=== PATIENT | male | born 1950 | race Caucasian/White ===

== ENCOUNTER 2017-10-15 01:15 | Inpatient (IN) | payer OTHER ==
[~2017-10-15] VITALS: Ht 170.2 cm; Wt 105.2 kg
--- NOTE | ~2017-10-15 | D ---
[facility] [place] [address] DISCHARGE SUMMARY Name: CATERINA METCALF Room #: 406-P [facility] IN M.R.#: [id number] Admission: 10/15/17 Attend Phys: Marlyn Burgos MD Discharge: 10/16/17 Date of : 54 Report #: [id number] THIS REPORT FOR: //name// CC: [facility]n [facility] DATE OF SERVICE: 10/16/2017 ADDENDUM I discussed the patient's case with the neurologist. EEG showed no seizure activity. MRI of the brain showed hyperintense signal within the anterior right temporal lobe, which was nonspecific. Status epilepticus was primary consideration. As noted, the patient had seizure episode on admission, that was the reason for admission, but he did not have status epilepticus. Given these findings, further evaluation was recommended. Neurologist recommended video EEG monitoring. Since this service is not available here, the patient will be transferred to the different hospital. The patient and family members are agreeable. Case management team is contacted, and transfer is requested. <ELECTRONICALLY SIGNED> By: Marlyn Burgos MD 10/17/17 1604 [id number] 1849 Marlyn Burgos MD /nt
--- NOTE | ~2017-10-15 | EKG ---
[address] [place] [address] ELECTROCARDIOGRAM REPORT Name: CATERINA METCALF Room #: 406-P ADM IN M.R.#: [id number] Admission: 10/15/17 Attend Phys: Marlyn Burgos MD Discharge: Date of : 54 Report #: [id number] THIS REPORT FOR: //name// [facility] ED Test Date: 2017-10-15 Test Time: 01:22:40 Pat Name: CATERINA METCALF Department: Room: 406 Gender: M [employer]: FADY : 1950 Requested By: Eliazar Castillo Order Number: [id number] MD: Nathan Castillo Measurements Intervals [place] Rate: 84 P: 27 IN: 174 QRS: -71 QRSD: 95 T: 57 QT: 373 QTc: 441 Interpretive Statements Sinus rhythm Inferior-posterior infarct, old Compared to ECG 01/01/2011 05:39:38 Sinus bradycardia no longer present T-wave abnormality is no longer present Electronically Signed On 10-15-2017 8:12:06 VIDEO GAME [employer] by Nathan Castillo [email or web address] <ELECTRONICALLY SIGNED> By: Nathan Castillo MD, [facility] 10/15/17 0812 0122 0122 Nathan Castillo MD, [facility] /EPI
--- NOTE | ~2017-10-15 | EEG ---
[facility] [place] [address] ELECTROENCEPHALOGRAM Name: CATERINA METCALF JR Room #: 406-P [facility] IN M.R.#: [id number] Admission: 10/15/17 Attend Phys: Alison Lopez Discharge: 10/16/17 Date of : 54 Report #: [id number] THIS REPORT FOR: //name// CC: Marlyn Wallaceen Colin DATE OF SERVICE: 10/16/2017 This patient has a history of seizure. EEG was done by placing the electrode by standard 10-20 system of electrode placement. Both referential and sequential montages were used for recording. Background activity in this patient's EEG is about 11 Hz and 40 microvolts. It is a symmetrical activity. This patient became drowsy that is associated with bilateral slowing and a few vertex sharp waves. Photic stimulation is unremarkable. Throughout the record, no active epileptiform activity was noticed. IMPRESSION: This patient's EEG is within normal limit. Thank you very much for this referral. <ELECTRONICALLY SIGNED> By: Kirk Cary MD 10/17/17 1146 1622 1655 Kirk Cary MD /nt
--- NOTE | ~2017-10-15 | HC ---
[facility] [place] [address] CONSULTATION Name: CATERINA METCALF JR Room #: 406-P [facility] IN .R.#: [id number] Admission: 10/15/17 Attend Phys: Marlyn Burgos MD Discharge: 10/16/17 Date of : 54 Report #: [id number] THIS REPORT FOR: //name// CC: Marlyn Burgos Gildardo [facility]parvez DATE OF SERVICE: 10/15/2017 HISTORY OF PRESENT ILLNESS: This is a 67-year-old male patient who was evaluated by me for seizure. The indicated that the patient was sleeping. She heard a loud cry and then a saw the patient stiffen up. His tongue is sore since then. The patient does not remember anything about this event. This came spontaneously without any trauma. They do not know what brought him on. REVIEW OF SYSTEMS: Indicate that he does snore, but never has been diagnosed with sleep apnea. He has never been evaluated either. He was diagnosed with depression, but he will not take his medication. He had a right knee surgery in the past. He does have a history of hypertension. He is not a diabetic. He does have acid reflux disease. Presently, he feels back to his baseline and he is not complaining of any new eye, ENT, cardiac, respiratory, GI, , musculoskeletal, constitutional, dermatological, hematological, psychiatric, throat, allergic symptom associated with present symptomatology. PAST MEDICAL HISTORY: Negative for seizures. FAMILY HISTORY: Negative for early age stroke or seizures. SOCIAL HISTORY: The patient does not drink alcohol now. He has drank alcohol and smoked in the past, but longtime ago. PHYSICAL EXAMINATION: NEUROLOGIC: Indicate he is alert, responsive, able to follow simple and complex command. His speech, concentration, fund of knowledge and memory is at his baseline. Cranial nerve examination 2-12 was unremarkable. He has a reasonably good strength, sensation, reflexes and tone in all 4 extremities. There is no cerebellar sign or papilledema. He is complaining of headache and he is also complaining of some spell. The whole thing feels numb. GENERAL: He is a very well-developed individual. HEENT: Does not have any dysmorphic features of eyes, ears and face. His vision and hearing looks adequate. NECK: He does not have any thyroid mass. He does not have any carotid bruits. EXTREMITIES: Pulses are palpable. He has no edema, cyanosis or jaundice. CARDIAC: Does not appear to be showing any fibrillation. IMPRESSION: 1. New onset seizure. [address] [address] CONSULTATION Name: CATERINA METCALF Room #: [address] [place] [address] [place] ..#: [id number] Admission: 10/15/17 Attend Phys: Marlyn Burgos MD Discharge: 10/16/17 Date of : 54 Report #: [id number] 2. High suspect for sleep apnea. 3. He is having pretty unusual spell. I do not know what they are, but we need to exclude the possibility of transient ischemic attack or stroke. RECOMMENDATIONS: I discussed with him that he needs further workup. Some of the workup needs to be done as an inpatient and some of them need to be done as an outpatient. I suggest MRI. I discussed with him MRI of the brain with and without contrast. I discussed with him that if we do with contrast, we get more information but there is some chance of getting reactions including irreversible and catastrophic dermatological problem. He understood it and he wants to proceed with and without contrast. I discussed with him that since he has a seizure, he needs to take seizure precaution for 6 months and he cannot drive for 6 months. I told him that he needs a sleep study with seizure montages but by hospital policy that has to be done as an outpatient. He understood all those and we will look at this workup and talk to him tomorrow. More than 50 minutes of time was spent taking care of this patient today and majority of that time was spent counseling this patient on multiple aspects summarized above and coordinating his care. <ELECTRONICALLY SIGNED> By: Kirk Cary MD 10/17/17 1145 1646 0446 Kirk Cary MD /nt
[2017-10-15 01:15] VITALS: BP 141/83
[~2017-10-15 01:15] MED LIST: HYDROCHLOROTH12.5 MG PO; LIPITOR20 MG PO; OMEPRAZOLE40 MG PO; PERCOCET 5-3251 EACH PO
[2017-10-15] MEDS ORDERED: NABUMETONE 750750 M1 PO (01:26)
[2017-10-15] MEDS ORDERED: COZAAR 50 MG TA50 M2 PO (01:26)
[2017-10-15] MEDS ORDERED: VENTOLIN HFA INH8 GM (01:26)
[2017-10-15] MEDS ORDERED: LIPITOR 20 MG T20 M1 PO (01:27)
[2017-10-15 01:43] LABS: HEMATOCRIT 48.3 % (42.0-52.0); HEMOGLOBIN 16.1 gm/dL (14.0-18.0); MCH 30.5 pg (26.0-34.0); MCHC 33.3 g/dL (28.0-37.0); MCV 91.5 fL (80.0-100.0); RBC 5.28 mil/uL (4.50-6.00); RDW 13.4 % (10.5-14.5); WBC 9.7 thou/uL (4.0-11.0)
[2017-10-15 01:49] LABS: ANION GAP 11 mmol/L (7-16); BUN 17 mg/dL (7-18); CALCIUM 8.9 mg/dL (8.5-10.1); CHLORIDE 106 mmol/L (98-107); CO2 24 mmol/L (21-32); CREATININE 1.1 mg/dL (0.7-1.3); GLUCOSE 133 mg/dL (74-106); POTASSIUM 4.8 mmol/L (3.5-5.1); SODIUM 141 mmol/L (136-145)
[2017-10-15 01:57] LABS: ALBUMIN 3.8 g/dL (3.4-5.0); MAGNESIUM 2.3 mg/dL (1.8-2.4); SGOT 14 U/L (15-37); SGPT 26 U/L (30-65); TOTAL BILIRUBIN 0.3 mg/dL (<0.1-1.0); TOTAL PROTEIN 7.2 g/dL (6.4-8.2); TROPONIN-I < 0.04 ng/mL (<0.06)
[2017-10-15 04:30] VITALS: BP 124/77
[2017-10-15 04:50] VITALS: BP 158/100
[2017-10-15 09:53] VITALS: BP 118/65
[2017-10-15] MEDS ORDERED: CO Q-10100 MG PO (15:20)
[2017-10-15 16:48] VITALS: BP 132/89
[2017-10-15 20:10] VITALS: BP 122/63
[2017-10-16 04:00] VITALS: BP 129/81
[2017-10-16 07:28] VITALS: BP 134/84
[2017-10-16 11:54] VITALS: BP 114/72
[2017-10-16 15:35] VITALS: BP 134/84
[2017-10-16 20:00] VITALS: BP 162/81
== END 2017-10-16 22:45 | disposition short-term general hospital (02) | DRG 101 ==
LOC: ER 01:15 → EROBS 04:06 → 4N 04:06
PROVIDERS: Emergency Medicine
DX: R56.9 Unspecified convulsions (principal); I10 Essential (primary) hypertension; E78.5 Hyperlipidemia, unspecified; K21.9 Gastro-esophageal reflux disease without esophagitis; M19.90 Unspecified osteoarthritis, unspecified site; G47.33 Obstructive sleep apnea (adult) (pediatric); S09.93XA Unspecified injury of face, initial encounter; X58.XXXA Exposure to other specified factors, initial encounter; Y93.89 Activity, other specified; Y92.89 Other specified places as the place of occurrence of the external cause; Y99.8 Other external cause status; Z79.899 Other long term (current) drug therapy; Z87.891 Personal history of nicotine dependence
CPT/HCPCS: 10790; 23047